=== PATIENT | male | born 1995 ===

== ENCOUNTER 2020-12-25 20:24 | Emergency (ER) | payer OTHER ==
[~2020-12-25] VITALS: Ht 172.7 cm; Wt 79.5 kg
[2020-12-25 21:39] VITALS: TEMP 98.5
[2020-12-25] MEDS ORDERED: CEPHALEXIN500 M1 PO (23:56)
[2020-12-26 00:07] VITALS: BP 126/78; PULSE 79
== END 2020-12-26 00:07 | disposition home or self-care (01) ==
LOC: COL.ER 20:24
DX: S02.40FA Zygomatic fracture, left side, initial encounter for closed fracture (principal); S02.40DA Maxillary fracture, left side, initial encounter for closed fracture; S02.32XA Fracture of orbital floor, left side, initial encounter for closed fracture; Z88.0 Allergy status to penicillin; Y04.2XXA Assault by strike against or bumped into by another person, initial encounter; Y93.01 Activity, walking, marching and hiking